=== PATIENT | male | born 1970 | race Two or more races ===

== ENCOUNTER 2020-05-09 10:01 | Day surgery (SDC) | payer OTHER ==
[~2020-05-09] VITALS: Ht 182.9 cm; Wt 72.6 kg
[2020-05-09] VITALS (9 sets, daily range): BP systolic 109–131; BP diastolic 63–71
--- NOTE | 2020-05-09 10:11 | Anethesia Preoperative Eval ---
Anesthesia Pre-op PMH/ROS General Date of Evaluation: May 09, 2020 Time of Evaluation: 10:27 Anesthesiologist: Shai ASA Score: ASA 1 Mallampati Score Class I : Soft palate, uvula, fauces, pillars visible Class II: Soft palate, uvula, fauces visible Class III: Soft palate, base of uvula visible Class IV: Only hard plate visible Mallampati Classification: Class I Surgeon: Awais Diagnosis: Abd Pain Surgical Procedure: Colonoscopy Anesthesia History: none Family History: no anesthesia problems Allergies: Coded Allergies: No Known Allergies (Unverified , 05/06/20) Medications: see eMAR Patient NPO?: Yes Anesthesia Pre-op Phys. Exam Physician Exam Constitutional: NAD Neurologic: CN 2-12 intact Cardiovascular: RRR Respiratory: CTA Gastrointestinal: S/NT/ND Airway Exam Mallampati Score: Class II MO: full ROM: full Teeth: missing, intact Anesthesia Pre-op A/P Risk Assessment & Plan Assessment: ASA 1 Plan: TIVA Status Change Before Surgery: No Eusebio Gibbons MD May 09, 2020 10:11
[2020-05-09] MEDS ORDERED: Meperidine 25mg/1ml Inj (FOR RIGORS ONLY) IV PRN (10:15)
[2020-05-09] MEDS ORDERED: Metoclopramide 10mg/2ml Inj IVP PRN (10:15)
[2020-05-09] MEDS ORDERED: DiphenhydrAMINE 50mg/ml Inj IVP PRN (10:15)
[2020-05-09] MEDS ORDERED: Labetalol 5mg/ml 20ml vial IV PRN (10:15)
[2020-05-09] MEDS ORDERED: HYDROcodone/Acetamin 5/325 tab ORAL PRN (10:15)
[2020-05-09] MEDS ORDERED: HYDROcodone/Acetamin 7.5/325 tab ORAL PRN (10:15)
[2020-05-09] MEDS ORDERED: Ketorolac 30mg Inj IV PRN ×2 (10:15)
[2020-05-09] MEDS ORDERED: oxyCODONE HCL/Acetaminophen 5/325mg ORAL PRN (10:15)
[2020-05-09] MEDS ORDERED: Midazolam 2mg/2ml Inj IVP PRN (10:15)
[2020-05-09] MEDS ORDERED: Hydromorphone 0.5mg/0.5ml inj IVP PRN (10:15)
[2020-05-09] MEDS ORDERED: fentaNYL 100 mcg/2 mL IV PRN (10:15)
[2020-05-09] MEDS ORDERED: LORazepam Inj 2mg/ml 1ml IV PRN (10:15)
[2020-05-09] MEDS ORDERED: LR 1000ml 1,000 ML IVLG SCH (10:15)
[2020-05-09] MEDS ORDERED: Atropine Sulfate 0.4mg/ml inj IVP PRN (10:15)
--- NOTE | 2020-05-09 10:28 | Immediate Post-Op Evaluation ---
Immediate Post-Op Evalulation Immediate Post-Op Evalulation Procedure: Colonoscopy Date of Evaluation: May 09, 2020 Time of Evaluation: 11:34 IV Fluids: 600 LR Blood Products: 0 Estimated Blood Loss: 1 Urinary Output: 0 Blood Pressure Systolic: 112 Blood Pressure Diastolic: 63 Pulse Rate: 76 Respiratory Rate: 18 O2 Sat by Pulse Oximetry: 100 Temperature (Fahrenheit): 98.4 Pain Score (1-10): 2 Nausea: No Vomiting: No Complications 0 Patient Status: awake, reacts, patent, none Hydration Status: adequate Eusebio Gibbons MD May 09, 2020 10:28
--- NOTE | 2020-05-09 10:29 | 48 Hour Post Anesthesia Eval ---
Post Anesthesia Evaluation Procedure: Colonoscopy Date of Evaluation: May 09, 2020 Time of Evaluation: 13:43 Blood Pressure Systolic: 111 0: 64 Pulse Rate: 74 Respiratory Rate: 18 Temperature (Fahrenheit): 98.6 O2 Sat by Pulse Oximetry: 100 Airway: patent Nausea: No Vomiting: No Pain Intensity: 0 Hydration Status: adequate Cardiopulmonary Status: Stable Mental Status/LOC: patient returned to baseline Follow-up Care/Observations: 0 Post-Anesthesia Complications: 0 Follow-up care needed: ready to discharge Eusebio Gibbons MD May 09, 2020 10:29
[2020-05-09] MEDS ORDERED: LR 1000ml ONE (10:30)
[2020-05-09] MEDS ORDERED: Lidocaine 1% MPF 10mg/ml 5ml ONE (10:30)
--- NOTE | 2020-05-09 10:32 | Short Stay Surgery H&P ---
History of Present Illness History of Present Illness Chief Complaint see H&P HPI Guido Serrano is a 49 year old male who was admitted on for Colon Screening Patient History Allergies: Coded Allergies: PENICILLINS (Verified Allergy, Unknown, 05/09/20) Medication History No Active Prescriptions or Reported Meds Physical Exam Vital Signs Last Vital Signs Date Time Temp Pulse Resp B/P (MAP) Pulse Ox O2 Delivery O2 Flow Rate FiO2 05/09/20 10:30 Room Air Plan Attestation Are the patient's medical conditions optimized for surgery? Glo Ernandez MD May 09, 2020 10:32
--- NOTE | 2020-05-09 10:33 | Pre-Procedure Note/Attestation ---
Pre-Procedure Note/Attestation Complete Prior to Procedure Planned Procedure: not applicable Procedure Narrative: Colon Indications for Procedure Pre-Operative Diagnosis: screening Attestation I attest that I discussed the nature of the procedure; its benefits; risks and complications; and alternatives (and the risks and benefits of such alternatives), prior to the procedure, with the patient (or the patient's legal patient relations representative). I attest that, if there was a reasonable possibility of needing a blood transfusion, the patient (or the patient's legal patient relations representative) was given the [facility] standardized written summary, pursuant to the [place] Blood Safety Act ([place] Health and Safety Code # 1645, as amended). I attest that I re-evaluated the patient just prior to the surgery and that there has been no change in the patient's H&P, except as documented below: Glo Ernandez MD May 09, 2020 10:33
--- NOTE | 2020-05-09 12:14 | Procedure Note ---
DATE OF PROCEDURE: 05/09/2020 GASTROENTEROLOGY PROCEDURE REPORT PROCEDURE: Colonoscopy with snare polypectomy as well as biopsy. SURGEON: Serigo Ernandez MD ANESTHESIOLOGIST: Eusebio Gibbons MD. PRE-ENDOSCOPIC DIAGNOSIS: Screening colonoscopy. POST-ENDOSCOPIC DIAGNOSES: 1. A 5 mm sessile polyp seen at the proximal transverse colon status post removal with cold snare polypectomy. 2. Normal terminal ileum for about 10 cm. 3. Diminutive polyp versus fold in the rectum, status post biopsy. DESCRIPTION OF PROCEDURE: The procedure, its risks, indications, alternatives, and possible complications including, but not limited to bleeding, infection, perforation, , and anesthesia complications were explained to the patient and an informed consent was obtained. The patient was then sedated in the left lateral decubitus position and a rectal exam was done, which was normal. The colonoscope was then introduced in the rectum and advanced to 10 cm into the terminal ileum. The colonoscope was then gradually withdrawn and mucosa examined carefully. The examination of the terminal ileum mucosa did not reveal any abnormalities. In the proximal transverse colon, there was a 5 mm sessile polyp which was removed with cold snare polypectomy without complications. In the rectum, there was a diminutive 2 to 3 mm polyp versus fold which was removed with biopsy forceps. Retroflex view of the rectum was otherwise unremarkable. The colonoscope was removed. The patient was sent to recovery in good condition. COMPLICATIONS: None. RECOMMENDATIONS: 1. Followup biopsy results. 2. Outpatient followup. 3. Repeat colonoscopy in 5 years. Thank you for asking me to participate in the care of this patient. Sergio Ernandez M.D. DR: Tiff JOB#: [id number] CC: MD SERGIO Marquez M.D. ; FAX#: [phone]
--- NOTE | 2020-05-10 22:36 | Endoscopy Procedure Note ---
Endoscopy Procedure Note General Indication for Procedure: screen Procedures Performed: colonoscopy Operative Findings/Diagnosis: see report Specimen: yes Pt Tolerated Procedure Well: Yes Estimated Blood Loss: none Anesthesia Anesthesiologist: see report Anesthesia: MAC, moderate sedation Medications Medication Given: see anesthesia record Inserted Devices Implant(s) used?: No GI Core Measures 50 yrs or older w/o bx or poly: No 10yrs. F/U recommended: No If not recommended, why?: Above average risk 18 years or older w/prev. colo: No <3yrs. since last colonoscopy: No Med reason:<3 yrs.: System Reason:<3 yrs.: Last colonoscopy >= to 3yrs: Yes Glo Ernandez MD May 10, 2020 22:36
--- NOTE | 2020-05-10 22:40 | Brief Operative Note ---
Immediate Post Operative Note Operative Note Chief Complaint: colon Pre-op Diagnosis: screening Procedure: colon Specimen: yes Complications: none Fluids: given Implant(s) used?: No Glo Ernandez MD May 10, 2020 22:39
== END 2020-05-09 11:25 | disposition home or self-care (01) ==
LOC: GAS 10:01
DX: Z12.11 Encounter for screening for malignant neoplasm of colon (principal); D12.3 Benign neoplasm of transverse colon; K63.5 Polyp of colon; K62.1 Rectal polyp; Z88.0 Allergy status to penicillin
CPT/HCPCS: 45380; 45385; 94003; J2250; J2704; J7120; U0004; 94150